=== PATIENT | male | born 1990 | race Caucasian/White ===

== ENCOUNTER 2016-09-23 07:37 | Emergency (ER) | payer BC ==
[2016-09-23] MEDS ORDERED: Ondansetron ODT TAB* 4 MG PO ONE (07:56)
[2016-09-23 08:56] VITALS: BP 126/64
--- NOTE | 2016-09-23 08:56 | UC ---
Andrea Crane Alok, scribed for Omar Silver MD on 09/23/16 at 0813 . Abdominal Pain Male HPI - HPI Summary HPI Summary: 25M presents to the [facility] with constant RUQ pain since the middle of last night. Pt states this pain woke him up in the middle of the night at approximately 0200 and began as sharp. Since then the pt states his pain has progressed to a dull, constant pressure. At worst the patient states his pain registered at a 7/ 10 and now is at a 4/10. Pt also notes nausea and vomited once. Pt denies fever , chills, or back pain. Pt denies CP or SOB. PMHx includes gall stones. PSHx includes knee surgery. - History of Current Complaint Chief Complaint: UCAbdominalPain Stated Complaint: GALLBLADDER ISSUE Time Seen by Provider: 09/23/16 07:56 Hx Obtained From: Patient Onset/Duration: Lasting Days, Still Present Timing: Constant Severity Initially: Moderate Severity Currently: Moderate Pain Intensity: 7 - at worst Pain Scale Used: 0-10 Numeric Location: Discrete At: RUQ Character: Dull - currently, Sharp - earlier last night Aggravating Factor(s):: Nothing Alleviating Factor(s): Nothing Associated Signs And Symptoms: Positive: Nausea, Vomiting. Negative: Fever, Chest Pain, Back Pain - Allergies/Home Medications Allergies/Adverse Reactions: Allergies Allergy/AdvReac Type Severity Reaction Status Date / Time No Known Allergies Allergy Verified 12/10/14 08:44 PMH/Surg Hx/FS Hx/Imm Hx Endocrine History Of: Denies: Diabetes, Thyroid Disease Cardiovascular History Of: Denies: Cardiac Disorders, Hypertension, Pacemaker/ICD, Congestive Heart Failure Respiratory History Of: Denies: COPD, Asthma, Bronchitis GI/ History Of: Reports: Gall Bladder Disease - gall bladder stone Denies: Ulcer, Kidney Stones Neurological History Of: Denies: Seizures, Migraine Psychological History Of: Denies: Anxiety, Depression - Surgical History Surgical History: Yes Surgery Procedure, Year, and Place: WISDOM TEETH-2007,left knee acl 2014 - Family History Known Family History: Positive: Hypertension - Social History Occupation: Employed Full-time Lives: With Family Alcohol Use: Rare Alcohol Amount: ONCE EVERY FEW MONTHS Substance Use Type: None Smoking Status (MU): Former Smoker Type: Cigarettes Amount Used/How Often: 1/2PPD When Did the Patient Quit Smoking/Using Tobacco: 2011 - Immunization History Most Recent Influenza Vaccination: not utd Most Recent Tetanus Shot: unsure Review of Systems Constitutional: Negative Respiratory: Negative Cardiovascular: Negative Gastrointestinal: Abdominal Pain, Vomiting, Other - nausea Musculoskeletal: Negative All Other Systems Reviewed And Are Negative: Yes Physical Exam Triage Information Reviewed: Yes Completion Of Physical Exam Limited Due To: Altered Mental Status Appearance: Well-Appearing Vital Signs: Initial Vital Signs Temp 98.9 F 09/23/16 07:50 Pulse 61 09/23/16 07:50 Resp 18 09/23/16 07:50 BP 139/63 09/23/16 07:50 Pulse Ox 98 09/23/16 07:50 Vital Signs Reviewed: Yes Eyes: Positive: Conjunctiva Clear ENT: Positive: Normal ENT inspection Neck: Positive: Nontender Respiratory: Positive: Chest non-tender, Lungs clear, Normal breath sounds Cardiovascular: Positive: RRR, No Murmur Abdomen Description: Positive: Other: - RUQ tenderness Musculoskeletal: Positive: Strength Intact, ROM Intact Neurological: Positive: Alert, Muscle Tone Normal Psychological: Positive: Normal Response To Family Skin: Negative: rashes Abd Pain Male Course/Dx - Course Course Of Treatment: 25 yr with abdominal pain. Needs Labs and full evalutation. He has failed to follow up for his pain in the past. He is signing out AMA. dr Martinez notified patient says he is driving himself to ER. - Differential Dx/Clinical Impression Provider Diagnoses: abdominal pain - Physician Notification/Consults Discussed Patient Care With: Dr. Martinez (ED) @ 4602 - made aware of pt hx and transit to ED Discharge - Discharge Plan Condition: Good Disposition: AGAINST MEDICAL ADVICE The documentation as recorded by the Andrea moreno Alok accurately reflects the service I personally performed and the decisions made by , Omar Silver MD.
== END 2016-09-23 08:50 | disposition left against medical advice (07) ==
LOC: UCEAST 07:37
DX: R10.11 Right upper quadrant pain (principal); R11.2 Nausea with vomiting, unspecified; K80.20 Calculus of gallbladder without cholecystitis without obstruction; Z87.891 Personal history of nicotine dependence
CPT/HCPCS: 99212; A9270-GY; G0463

== ENCOUNTER 2016-09-23 09:13 | Emergency (ER) | payer BC ==
--- NOTE | 2016-09-23 10:53 | RAD ---
Indication: Abdominal pain. History of cholelithiasis. Comparison: April 15, 2016 Technique: RIGHT upper quadrant ultrasound. Report: Large body habitus and bowel gas limits acoustic window. Appropriate direction flow documented in the portal and hepatic veins. 19.5 cm liver is normal in echogenicity. Negative for focal hepatic lesions. Negative for intrahepatic biliary dilatation. 3.5 mm common bile duct. Adequately distended gallbladder is remarkable for a 2.5 cm immobile stone at the neck as well as biliary sludge. Negative for pericholecystic fluid. Negative for sonographic Wheeler's sign. The pancreatic tail is partially obscured due to bowel gas with the visualized pancreas unremarkable. Negative for ascites. 12.3 cm RIGHT kidney is unremarkable. IMPRESSION: Cholelithiasis with nonmobile mild 2.5 cm stone at the neck. No compelling secondary findings to strongly suggest acute cholecystitis. Only borderline gallbladder wall thickening. No pericholecystic fluid or sonographic Wheeler's sign. Negative for biliary dilatation.
[2016-09-23 11:28] LABS: Albumin 4.5 g/dL (3.2-5.2); C Reactive Protein 2.17 mg/L (< 5.00); Calcium 9.6 mg/dL (8.6-10.3); EGFR African American 107.8 (>60); EGFR Non-African American 83.8 (>60); Globulin 2.8 g/dL (2-4); Potassium 4.4 mmol/L (3.5-5.0); Total Bilirubin 0.5 mg/dL (0.2-1.0); Total Protein 7.3 g/dL (6.4-8.9)
[2016-09-23 11:46] LABS: Hematocrit 43 % (42-52); Mean Corpuscular HGB Conc 35 g/dl (31-36); Mean Corpuscular Hemoglobin 30 pg (27-31); Mean Corpuscular Volume 88 fL (80-94); Mean Platelet Volume 9 um3 (7.4-10.4); Red Blood Count 4.95 10^6/ul (4.0-5.4); Red Cell Distribution Width 13 % (10.5-15); White Blood Count 8.6 10^3/ul (3.5-10.8)
[2016-09-23 13:01] LABS: Urine Bilirubin Negative (Negative); Urine Glucose Negative (Negative); Urine Nitrite Negative (Negative)
[2016-09-23 13:09] VITALS: BP 142/87
--- NOTE | 2016-09-23 17:48 | ED ---
Milad Crane Billy, scribed for Brody Martinez MD on 09/23/16 at 0952 . Abdominal Pain/Male - HPI Summary HPI Summary: Patient is a 25 year-old male with a history of gallstones coming to [facility] for evaluation of RUQ pain starting at 0200 this morning. He states that the pain had entirely resolved spontaneously by 0800. It did not radiate to the back. He felt nauseated. Denies any fevers or chills. He had lasagna last night at 1830. Denies any urinary symptoms. Stools have appeared normal in color. - History of Current Complaint Chief Complaint: EDChaloin Stated Complaint: ABD PAIN- SENT FROM Time Seen by Provider: 09/23/16 09:43 Hx Obtained From: Patient Onset/Duration: Gradual Onset, Resolved Timing: Constant Severity Initially: Moderate Severity Currently: None Pain Intensity: 4 Pain Scale Used: 0-10 Numeric Location: Discrete At: RUQ Radiates: No Aggravating Factor(s): Nothing Alleviating Factor(s): Spontaneous Resolution Associated Signs And Symptoms: Positive: Nausea. Negative: Fever - Allergies/Home Medications Allergies/Adverse Reactions: Allergies Allergy/AdvReac Type Severity Reaction Status Date / Time No Known Allergies Allergy Verified 12/10/14 08:44 PMH/Surg Hx/FS Hx/Imm Hx Endocrine/Hematology History: Denies: Hx Bone Marrow Disease, Hx Diabetes, Hx Sickle Cell Disease, Hx Thyroid Disease, Hx Anemia Cardiovascular History: Denies: Hx Congestive Heart Failure, Hx Coronary Artery Disease, Hx Hypertension, Hx Pacemaker/ICD, Other Cardiovascular Problems/Disorders Respiratory History: Denies: Hx Asthma, Hx Chronic Obstructive Pulmonary Disease (COPD), Hx Sleep Apnea, Other Respiratory Problems/Disorders GI History: Reports: Hx Gall Bladder Disease - gall bladder stone Denies: Hx Cirrhosis, Hx Crohn's Disease, Hx Irritable Bowel, Hx Ulcer History: Denies: Hx Kidney Infection, Hx Kidney Stones Musculoskeletal History: Denies: Hx Arthritis, Hx Bursitis, Hx Tendonitis, Other Musculoskeletal History Sensory History: Denies: Hx Cataracts, Hx Contacts or Glasses, Hx Glaucoma, Hx Hearing Aid Opthamlomology History: Denies: Hx Cataracts, Hx Contacts or Glasses, Hx Glaucoma Neurological History: Denies: Hx Headaches, Hx Migraine, Hx Seizures, Other Neuro Impairments/ Disorders Psychiatric History: Denies: Hx Anxiety, Hx Depression, Hx Panic Disorder - Surgical History Surgery Procedure, Year, and Place: WISDOM TEETH-2008,left knee acl 2015 Hx Anesthesia Reactions: No Infectious Disease History: No Infectious Disease History: Denies: Hx Clostridium Difficile, Hx Hepatitis, Hx Human Immunodeficiency Virus (HIV), Hx Shingles, Hx Tuberculosis, Hx Known/Suspected VRE, Hx Known/ Suspected VRSA, History Other Infectious Disease, Traveled Outside the [place] in Last 30 Days - Family History Known Family History: Positive: Hypertension, Other - Gallbladder disease - Social History Alcohol Use: None Alcohol Amount: ONCE EVERY FEW MONTHS Substance Use Type: Reports: None Smoking Status (MU): Former Smoker Type: Cigarettes Amount Used/How Often: 1/2PPD Review of Systems Negative: Fever, Chills Positive: Abdominal Pain, Nausea Negative: Rash All Other Systems Reviewed And Are Negative: Yes Physical Exam - Summary Physical Exam Summary: The patient is well-nourished in no acute distress and in no acute pain. The skin is warm and dry and skin color reflects adequate perfusion. HEENT: The head is normocephalic and atraumatic. The pupils are equal and reactive. The conjunctivae are clear and without drainage. Nares are patent and without drainage. Mouth reveals moist mucous membranes and the throat is without erythema and exudate. The external ears are intact. The ear canals are patent and without drainage. The tympanic membranes are intact. Neck is supple with full range of motion and non-tender. There are no carotid bruits. There is no neck vein distension. Respiratory: Chest is non-tender. Lungs are clear to auscultation and breath sounds are symmetrical and equal. Cardiovascular: Hear is regular rate and rhythm. There is no murmur or rub auscultated. There is no peripheral edema and pulses are symmetrical and equal. Abdomen: The abdomen is soft and tender to the RUQ with deep palpation. There is no CVA tenderness. There are normal bowel sounds heard in all four quadrants and there is no organomegaly palpated. Musculoskeletal: There is no back pain noted. Extremities are non-tender with full range of motion. There is good capillary refill. There is no peripheral edema or calf tenderness elicited. Neurological: Patient is alert and oriented to person, place and time. The patient has symmetrical motor strength in all four extremities. Cranial nerves are grossly intact. Deep tendon reflexes are symmetrical and equal in all four extremities. Psychiatric: The patient has an appropriate affect and does not exhibit any anxiety or depression. Triage Information Reviewed: Yes Vital Signs On Initial Exam: Initial Vitals Temp Pulse Resp BP Pulse Ox 97.9 F 57 20 149/61 99 09/23/16 09:18 09/23/16 09:18 09/23/16 09:18 09/23/16 09:18 09/23/16 09:18 Vital Signs Reviewed: Yes - [place] Coma Scale Coma Scale Total: 15 Diagnostics - Vital Signs Vital Signs Temp Pulse Resp BP Pulse Ox 09/23/16 09:21 97.1 F 91 20 149/61 97 09/23/16 09:18 97.9 F 57 20 149/61 99 - Laboratory Lab Results: Lab Results 09/23/16 09/23/16 09/23/16 Range/Units 11:05 11:05 11:25 WBC 8.6 (3.5-10.8) 10^3/ul RBC 4.95 (4.0-5.4) 10^6/ul Hgb 15.0 (14.0-18.0) g/dl Hct 43 (42-52) % MCV 88 (80-94) fL MCH 30 (27-31) pg MCHC 35 (31-36) g/dl RDW 13 (10.5-15) % Plt Count 159 (150-450) 10^3/ul MPV 9 (7.4-10.4) um3 Neut % (Auto) 72.9 (38-83) % Lymph % (Auto) 20.5 L (25-47) % [place] % (Auto) 5.8 (1-9) % Eos % (Auto) 0.7 (0-6) % Baso % (Auto) 0.1 (0-2) % Absolute Neuts (auto) 6.3 (1.5-7.7) 10^3/ul Absolute Lymphs (auto) 1.8 (1.0-4.8) 10^3/ul Absolute Monos (auto) 0.5 (0-0.8) 10^3/ul Absolute Eos (auto) 0.1 (0-0.6) 10^3/ul Absolute Basos (auto) 0 (0-0.2) 10^3/ul Absolute Nucleated RBC 0 10^3/ul Nucleated RBC % 0 Sodium 137 (133-145) mmol/L Potassium 4.4 (3.5-5.0) mmol/L Chloride 106 (101-111) mmol/L Carbon Dioxide 26 (22-32) mmol/L Anion Gap 5 (2-11) mmol/L BUN 17 (6-24) mg/dL Creatinine 1.06 (0.67-1.17) mg/dL Est GFR ( Amer) 107.8 (>60) Est GFR (Non-Af Amer) 83.8 (>60) BUN/Creatinine Ratio 16.0 (8-20) Glucose 106 H (70-100) mg/dL Lactic Acid 0.9 (0.5-2.0) mmol/L Calcium 9.6 (8.6-10.3) mg/dL Total Bilirubin 0.50 (0.2-1.0) mg/dL AST 22 (13-39) U/L ALT 45 (7-52) U/L Alkaline Phosphatase 60 (34-104) U/L C-Reactive Protein 2.17 (< 5.00) mg/L Total Protein 7.3 (6.4-8.9) g/dL Albumin 4.5 (3.2-5.2) g/dL Globulin 2.8 (2-4) g/dL Albumin/Globulin Ratio 1.6 (1-3) Amylase 40 (29-103) U/L Lipase 27 (11.0-82.0) U/L Urine Color Urine Appearance Urine pH (5-9) Ur Specific [place] (1.010-1.030) Urine Protein (Negative) Urine Ketones (Negative) Urine Blood (Negative) Urine Nitrate (Negative) Urine Bilirubin (Negative) Urine Urobilinogen (Negative) Ur Leukocyte Esterase (Negative) Urine Glucose (Negative) 09/23/16 Range/Units 12:43 WBC (3.5-10.8) 10^3/ul RBC (4.0-5.4) 10^6/ul Hgb (14.0-18.0) g/dl Hct (42-52) % MCV (80-94) fL MCH (27-31) pg MCHC (31-36) g/dl RDW (10.5-15) % Plt Count (150-450) 10^3/ul MPV (7.4-10.4) um3 Neut % (Auto) (38-83) % Lymph % (Auto) (25-47) % [place] % (Auto) (1-9) % Eos % (Auto) (0-6) % Baso % (Auto) (0-2) % Absolute Neuts (auto) (1.5-7.7) 10^3/ul Absolute Lymphs (auto) (1.0-4.8) 10^3/ul Absolute Monos (auto) (0-0.8) 10^3/ul Absolute Eos (auto) (0-0.6) 10^3/ul Absolute Basos (auto) (0-0.2) 10^3/ul Absolute Nucleated RBC 10^3/ul Nucleated RBC % Sodium (133-145) mmol/L Potassium (3.5-5.0) mmol/L Chloride (101-111) mmol/L Carbon Dioxide (22-32) mmol/L Anion Gap (2-11) mmol/L BUN (6-24) mg/dL Creatinine (0.67-1.17) mg/dL Est GFR ( Amer) (>60) Est GFR (Non-Af Amer) (>60) BUN/Creatinine Ratio (8-20) Glucose (70-100) mg/dL Lactic Acid (0.5-2.0) mmol/L Calcium (8.6-10.3) mg/dL Total Bilirubin (0.2-1.0) mg/dL AST (13-39) U/L ALT (7-52) U/L Alkaline Phosphatase (34-104) U/L C-Reactive Protein (< 5.00) mg/L Total Protein (6.4-8.9) g/dL Albumin (3.2-5.2) g/dL Globulin (2-4) g/dL Albumin/Globulin Ratio (1-3) Amylase (29-103) U/L Lipase (11.0-82.0) U/L Urine Color Yellow Urine Appearance Clear Urine pH 6.0 (5-9) Ur Specific [place] 1.021 (1.010-1.030) Urine Protein Negative (Negative) Urine Ketones Negative (Negative) Urine Blood Negative (Negative) Urine Nitrate Negative (Negative) Urine Bilirubin Negative (Negative) Urine Urobilinogen Negative (Negative) Ur Leukocyte Esterase Negative (Negative) Urine Glucose Negative (Negative) Result Diagrams: 09/23/16 11:25 09/23/16 11:05 Lab Statement: Any lab studies that have been ordered have been reviewed, and results considered in the medical decision making process. - Ultrasound No standard instances Ultrasound Interpretation Completed By: Radiologist - Gallbladder Ultrasound: Cholelithiasis with nonmobile mild 2.5 cm stone at the neck. No compelling secondary findings to strongly suggest acute cholecystitis. Only borderline gallbladder wall thickening. No pericholecystic fluid or sonographic Wheeler's sign. Negative for biliary dilatation. Re-Evaluation - Re-Evaluation First Eval Re-Evaluation Time: 12:52 Comment: Labs and imaging reviewed with the patient. Abdominal Pain Fem Course/Dx - Course Assessment/Plan: Patient is a 25 year-old male coming to [facility] for evaluation of RUQ pain. Labs were reviewed with the patient. Gallbladder ultrasound shows findings as read by the radiologist, with no signs of acute cholecystitis. The patient declined pain medications. He will be discharged home to follow up with Dr. Shultz. - Diagnoses Differential Diagnosis/HQI/PQRI: Gall Bladder Disease, Renal Colic Provider Diagnoses: Cholelithiasis, Biliary colic Discharge - Discharge Plan Condition: Stable Disposition: HOME Patient Education Materials: Gallstones (ED) Referrals: Nishant Shultz MD [Medical Doctor] - Additional Instructions: AVOID FRIED AND FATTY FOODS. The documentation as recorded by the Milad moreno Billy accurately reflects the service I personally performed and the decisions made by , Brody Martinez MD.
== END 2016-09-23 13:10 | disposition home or self-care (01) ==
LOC: ED 09:13
DX: K80.20 Calculus of gallbladder without cholecystitis without obstruction (principal); K80.50 Calculus of bile duct without cholangitis or cholecystitis without obstruction; Z87.891 Personal history of nicotine dependence
CPT/HCPCS: 36415; 76705; 80053; 81003; 82150; 83605; 83690; 85025; 86140; 99282

== ENCOUNTER 2017-01-28 14:29 | Emergency (ER) | payer BC ==
[2017-01-28 16:37] VITALS: BP 139/92
--- NOTE | 2017-01-28 17:15 | UC ---
Respiratory Complaint HPI - HPI Summary HPI Summary: Patient presents with 2 day cough and congestion. Symptoms not improved with OTC. Denies N/C/D/V. Notes to some chest pain with cough - feeling pain in the "lungs" as though they are burning. post nasal drip + He states he had some specks of blood this morning while coughing and was concerned. Denies personal or family cardiac history. Denies fevers, sweats or chills. - History of Current Complaint Chief Complaint: UCRespiratory Stated Complaint: COUGH HEADACHE Time Seen by Provider: 01/28/17 15:46 Hx Obtained From: Patient Onset/Duration: Sudden Onset Timing: Constant Severity Currently: Mild Pain Intensity: 3 Pain Scale Used: 0-10 Numeric Character: Cough: Productive Aggravating Factors: Deep Breaths, Recumbent Position Alleviating Factors: Upright Position Associated Signs And Symptoms: Positive: Dyspnea, Pleuritic Chest Pain Related History: Seasonal Allergies - Risk Factors Pulmonary Embolism Risk Factors: Negative Cardiac Risk Factors: Negative Tuberculosis Risk Factors: Negative - Allergies/Home Medications Allergies/Adverse Reactions: Allergies Allergy/AdvReac Type Severity Reaction Status Date / Time No Known Allergies Allergy Verified 01/28/17 14:50 PMH/Surg Hx/FS Hx/Imm Hx - Additional Past Medical History Additional PMH: NEGATIVE: CAD, HTN, COPD, DM Previously Healthy: Yes - Surgical History Surgical History: Yes Surgery Procedure, Year, and Place: WISDOM TEETH-2007,left knee acl 2014 - Family History Known Family History: Positive: Hypertension, Other - Gallbladder disease - Social History Occupation: Employed Full-time Lives: With Family Alcohol Use: Rare Alcohol Amount: ONCE EVERY FEW MONTHS Substance Use Type: None Smoking Status (MU): Heavy Every Day Tobacco Smoker Type: Smokeless Tobacco Amount Used/How Often: 1/2PPD When Did the Patient Quit Smoking/Using Tobacco: 2011 - Immunization History Most Recent Influenza Vaccination: not utd Most Recent Tetanus Shot: unsure Review of Systems Constitutional: Negative Skin: Negative ENT: Negative, Epistaxis, Sore Throat, Nasal Discharge, Sinus Congestion, Sinus Pain/Tenderness Respiratory: Shortness Of Breath, Cough Cardiovascular: Negative, Chest Pain - only with cough - pleuritic Motor: Negative Neurovascular: Negative Musculoskeletal: Arthralgia Neurological: Negative Is Patient Immunocompromised?: No All Other Systems Reviewed And Are Negative: Yes Physical Exam Triage Information Reviewed: Yes Appearance: Well-Appearing, Well-Nourished Vital Signs: Initial Vital Signs Temp 98.8 F 01/28/17 14:47 Pulse 91 01/28/17 14:47 Resp 18 01/28/17 14:47 BP 144/85 01/28/17 14:47 Pulse Ox 98 01/28/17 14:47 Vital Signs Reviewed: Yes Eye Exam: Normal Eyes: Positive: Conjunctiva Clear Neck exam: Normal Neck: Positive: Supple, No Lymphadenopathy Respiratory Exam: Normal Respiratory: Positive: Chest non-tender Cardiovascular Exam: Normal Cardiovascular: Positive: RRR Neurological Exam: Normal Neurological: Positive: Alert Psychological: Positive: Normal Response To Family, Age Appropriate Behavior Skin Exam: Normal Diagnostic Evaluation - Laboratory O2 Sat by Pulse Oximetry: 95 Respiratory Course/Dx - Course Course Of Treatment: Patient evaluated for pleuritic chest pain with cough x 2 days. Worse at night, better during day. Lungs CTA. Physical exam WNL. Will treat for cough and robitussin with codeine prescribed and tessalon for daytime. Albuterol inhaler rx as patient notes some SOB. - Differential Dx/Diagnosis Differential Diagnosis/HQI/PQRI: Asthma, Bronchitis, Other - SOB Provider Diagnoses: Cough Discharge - Discharge Plan Condition: Stable Disposition: HOME Prescriptions: Albuterol HFA INHALER* [Ventolin HFA Inhaler*] 1 puff INH Q4H PRN #1 mdi PRN Reason: Cough Benzonatate CAP* [Tessalon CAP*] 100 mg PO TID #21 cap guaiFENesin/CODIEN 100MG-10MG* [Robitussin AC 100Mg-10Mg*] 10 ml PO BEDTIME # 100 udc MDD 10 Patient Education Materials: Costochondritis (ED), Acute Cough (ED) Referrals: No Primary Care Phys,NOPCP [Primary Care Provider] - Additional Instructions: Your blood pressure was elevated at this visit. That does not mean you have hypertension, it is probably due to your current condition. Please follow up with your primary care provider. Take medications as prescribed Humidifier in the home will help. hot tea with lemon and honey will help with any drainage or sore throat. Tylenol 650mg three times daily for any pain related to your symptoms If you develop any worsening chest pain - return to the immediately Take robitussin with codeine at bedtime - do no take with driving or working Tessalon Perles can be taken up to 3 x daily Albuterol up to every 4 hours as needed If symptoms become worse or fail to improve - return to the UC
== END 2017-01-28 16:40 | disposition home or self-care (01) ==
LOC: UCEAST 14:29
DX: R05 Cough (principal); F17.210 Nicotine dependence, cigarettes, uncomplicated
CPT/HCPCS: 99212; G0463